=== PATIENT | male | born 1980 | race Caucasian/White ===

== ENCOUNTER 2017-02-02 11:32 | Emergency (ER) | payer SELFPAY ==
[~2017-02-02] VITALS: Ht 172.7 cm; Wt 100.0 kg
[2017-02-02 11:35] VITALS: BP_SYST 127; BP_SYST 150; BP_DIAS 100; BP_DIAS 79; PULSE 70; PULSE 80; RESP 18; TEMP 98; O2SAT 96; O2SAT 97
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
[2017-02-02] MEDS ORDERED: KETOROLAC TROMETHAMINE 60 MG/2 ML (IM) VIAL IM ONE (12:30)
--- NOTE | 2017-02-02 13:06 | RADRPT ---
EXAM DATE/TIME: 02/02/2017 12:42 [facility] COMPARISON: No previous studies available for comparison. INDICATIONS : Left ankle pain, no known injury. MEDICAL HISTORY : None. SURGICAL HISTORY : None. ENCOUNTER: Initial ACUITY: 3 days PAIN SCORE: 8/10 LOCATION: Left ankle FINDINGS: Soft tissue swelling is noted involving the lateral malleolus. There is no acute fracture or disloca tion of the left ankle. Mild degenerative changes are noted. CONCLUSION: 1. Soft tissue swelling involving the lateral malleolus. 2. Mild degenerative changes of the left ankle. 3. No acute fracture or dislocation. Marcus Ponce MD on February 02, 2017 at 12:49 Board Certified Radiologist. This report was verified electronically.
--- NOTE | 2017-02-02 13:25 | RADRPT ---
EXAM DATE/TIME: 02/02/2017 12:52 [facility] COMPARISON: No previous studies available for comparison. INDICATIONS : Left leg pain and swelling. MEDICAL HISTORY : Left leg swelling. SURGICAL HISTORY : None. ENCOUNTER: Initial ACUITY: 1 week PAIN SCORE: 10/10 LOCATION: Left leg. TECHNIQUE: Venous ultrasound of the leg was performed from the inguinal ligament to the proximal calf. Real-nita e, color Doppler and spectral tracing, compression and augmentation techniques were used. FINDINGS: There is normal compressibility of the deep venous system from the inguinal region to the proximal ca lf. No echogenic clot is seen in the lumen of the common femoral, femoral, popliteal, and posterior tibial veins. There is a normal response of the venous system to proximal and distal augmentation an d respiration. There is a focal fluid collection in the popliteal fossa measuring 3.1 x 1.4 cm. This is characterist ic of a Werner's cyst. CONCLUSION: 1. No evidence of DVT. 2. Werner's cyst in the popliteal fossa measuring 3.1 cm. Valeriano Alejo MD on February 02, 2017 at 13:23 Board Certified Radiologist. This report was verified electronically.
[2017-02-02] MEDS ORDERED: IBUP800T23 PO (13:33)
[2017-02-03] MEDS ORDERED: IBUP800T23 PO (02:09)
== END 2017-02-02 14:20 | disposition home or self-care (01) ==
LOC: NEPK 11:32
DX: S80.812A Abrasion, left lower leg, initial encounter (principal); M71.22 Synovial cyst of popliteal space [Baker], left knee; V29.9XXA Motorcycle rider (driver) (passenger) injured in unspecified traffic accident, initial encounter
CPT/HCPCS: 73610; 93971; 96372; 99284; J1885

== ENCOUNTER 2017-02-02 22:18 | Emergency (ER) | payer SELFPAY ==
[~2017-02-02] VITALS: Ht 175.3 cm; Wt 105.0 kg
[~2017-02-02 22:18] MED LIST: IBUP800T23 PO
[2017-02-02 22:20] VITALS: BP 158/104; PULSE 78; RESP 18; TEMP 98.5; O2SAT 97
--- NOTE | 2017-02-03 00:57 | PD ---
HPI Chief Complaint: Edema Time Seen by Provider: 00:50 Travel History International Travel<30 days: No Contact w/Intl Traveler<30days: No Traveled to known affect area: No History of Present Illness HPI Patient is a 36-year-old male presenting to the emergency department for reevaluation of left lower leg pain and swelling. Patient states he was seen and evaluated earlier however he continues to have pain he cannot afford to have his medication filled. He states his pain is a 7 out of 10 and describes as aching and sore. He denies any fever, chills, redness, numbness, tingling. There are no alleviating factors, pain is exacerbated with prolonged standing or ambulation. PFSH Past Medical History Cardiovascular Problems: Yes Diminished Hearing: No Myocardial Infarction: Yes Tetanus Vaccination: < 5 Years Social History Alcohol Use: Yes (at nighttime) Tobacco Use: Yes Substance Use: No Allergies-Medications (Allergen,Severity, Reaction): Coded Allergies: No Known Allergies (Unverified , 02/02/17) Reported Meds & Prescriptions Reported Meds & Active Scripts Active Ibuprofen 800 Mg Tab 800 Mg PO Q8H PRN Review of Systems Except as stated in HPI: all other systems reviewed are Neg Musculoskeletal: Positive: Edema, Pain Physical Exam Narrative GENERAL: Well-developed, well-nourished, alert male. Resting comfortably in no acute distress. SKIN: Warm and dry. Healing abrasion to left anterior knee and left lateral ankle, no induration or exudate noted. HEAD: Atraumatic. Normocephalic. EYES: Pupils equal and round. No scleral icterus. No injection or drainage. ENT: No nasal bleeding or discharge. Mucous membranes pink and moist. NECK: Trachea midline. No JVD. CARDIOVASCULAR: Regular rate and rhythm. RESPIRATORY: No accessory muscle use. Clear to auscultation. Breath sounds equal bilaterally. GASTROINTESTINAL: Abdomen soft, non-tender, nondistended. Hepatic and splenic margins not palpable. MUSCULOSKELETAL: Extremities without clubbing, cyanosis. Trace peripheral edema to left lower extremity. 2+ dorsalis pedal pulse bilaterally, brisk less than 3 second capillary refill. No obvious deformities. NEUROLOGICAL: Awake and alert. No obvious cranial nerve deficits. Motor grossly within normal limits. Five out of 5 muscle strength in the arms and legs. Normal speech. PSYCHIATRIC: Appropriate mood and affect; insight and judgment normal. Data Data Last Documented VS Vital Signs Date Time Temp Pulse Resp B/P (MAP) Pulse Ox O2 Delivery O2 Flow Rate FiO2 02/02/17 22:20 98.5 78 18 158/104 (122) 97 Orders Orders Ibuprofen (Motrin) (02/03/17 01:00) Ed Discharge Order (02/03/17 00:57) MDM Medical Decision Making Medical Screen Exam Complete: Yes Emergency Medical Condition: Yes Medical Record Reviewed: Yes Interpretation(s) Vital Signs Date Time Temp Pulse Resp B/P (MAP) Pulse Ox O2 Delivery O2 Flow Rate FiO2 02/02/17 22:20 98.5 78 18 158/104 (122) 97 Differential Diagnosis DVT versus cellulitis versus Werner cyst versus other Narrative Course Patient's 36-year-old male that presented to the chart second time today with the same complaint. He was seen and evaluated earlier, and ultrasound of the left lower extremity was performed to rule out DVT. Imaging was also performed of the left ankle. Ultrasound is negative for DVT and the x-ray was also negative for acute fracture. Imaging did reveal a 3.1 cm Werner cyst. Patient was encouraged to keep extremity elevated and take previously prescribed ibuprofen as needed and as directed for pain. Patient was advised that this is a $4 prescription at [facility] and [facility]. He was encouraged to follow up with primary care or at the [facility]. He was encouraged to return to emergency department for any new or worsening symptoms. Furthermore patient was encouraged to follow-up with data support specialist as needed. Diagnosis Primary Impression: Werner cyst Qualified Codes: M71.22 - Synovial cyst of popliteal space [Werner], left knee Referrals: [facility] Orthopaedic Surgeon Patient Instructions: Bakers Cyst (ED), General Instructions Additional Instructions: Follow-up with a primary doctor or at the [facility] Rest, ice, elevate extremity Take medication as needed and as directed for pain as previously prescribed Return to emergency department for any new or worsening symptoms Med/Other Pt SpecificInfo: Prescription(s) given, No Change to Meds Scripts Ibuprofen (Ibuprofen) 800 Mg Tab 800 MG PO Q8H Y for Pain/Inflammation, #30 TAB 0 Refills Prov: Antonia Vergara 02/03/17 Disposition: 01 DISCHARGE HOME Condition: Stable Antonia Vergara Feb 03, 2017 00:57
[2017-02-03] MEDS ORDERED: IBUPROFEN 800 MG TAB PO ONE (01:00)
[2017-02-03] MEDS ORDERED: IBUP800T23 PO (02:09)
== END 2017-02-03 02:08 | disposition home or self-care (01) ==
LOC: NEPD 22:18
DX: M71.22 Synovial cyst of popliteal space [Baker], left knee (principal)
CPT/HCPCS: 99283